=== PATIENT | male | born 1965 | race Two or more races ===

== ENCOUNTER 2016-08-10 18:39 | Inpatient (IN) | payer MEDICAID ==
[2016-08-10] MEDS ORDERED: Ondansetron INJ* 2 MG/ML VIAL IV ONE (20:20)
[2016-08-10] MEDS ORDERED: NS 0.9% 1000 ML* 1,000 ML IV ONE (20:20)
[2016-08-10] MEDS ORDERED: HYDROmorphone* 1 MG/ML 1 ML SYR IV ONE (20:20)
[2016-08-10 20:46] LABS: Urine Bacteria Absent (Absent); Urine Bilirubin Negative (Negative); Urine Glucose Negative (Negative); Urine Nitrite Negative (Negative)
[2016-08-10 22:08] LABS: Hematocrit 42 % (42-52); Hemoglobin 14.3 g/dl (14.0-18.0); Mean Corpuscular HGB Conc 34 g/dl (31-36); Mean Corpuscular Hemoglobin 29 pg (27-31); Mean Corpuscular Volume 87 fL (80-94); Mean Platelet Volume 9 um3 (7.4-10.4); Red Blood Count 4.85 10^6/ul (4.0-5.4); Red Cell Distribution Width 14 % (10.5-15); White Blood Count 15.4 10^3/ul (3.5-10.8)
--- NOTE | 2016-08-10 22:08 | RAD ---
HISTORY: Right upper quadrant pain. COMPARISONS: None TECHNIQUE: Multiple transverse and longitudinal ultrasound images were obtained of the right upper quadrant. FINDINGS: LIVER: The liver is normal in dimensions and echogenicity. Normal hepatic and portal venous blood flow is duplicated with color flow imaging. There is no gross intrahepatic biliary duct dilatation. GALLBLADDER AND EXTRAHEPATIC BILIARY DUCT: There are multiple echogenic and shadowing stones in the gallbladder lumen. The gallbladder wall measures up to 6 mm in thickness. There is trace pericholecystic fluid. The common bile duct measures a maximum diameter of 4 mm. PANCREAS: The portions of the pancreas not obscured by bowel gas are normal in appearance. RIGHT KIDNEY: The right kidney is normal in size, morphology and echogenicity. AORTA AND IVC: The visualized portions are normal in appearance and not pathologically dilated. IMPRESSION: SONOGRAPHIC FINDINGS INCLUDE CHOLELITHIASIS WITH GALLBLADDER WALL THICKENING AND TRACE PERICHOLECYSTIC FLUID. NEGATIVE CLINICAL SETTING THESE FINDINGS ARE CONSISTENT WITH ACUTE CHOLECYSTITIS. IF CLINICALLY WARRANTED FURTHER CHARACTERIZATION COULD BE MADE WITH HIDA SCAN.
[2016-08-10 22:26] LABS: Albumin 3.5 g/dL (3.2-5.2); C Reactive Protein 196.61 mg/L (< 5.00); Calcium 8.2 mg/dL (8.6-10.3); EGFR African American 109.3 (>60); Potassium 3.5 mmol/L (3.5-5.0); Total Bilirubin 1.9 mg/dL (0.2-1.0); Total Protein 6.5 g/dL (6.4-8.9)
[2016-08-11] MEDS ORDERED: Ondansetron INJ* 2 MG/ML VIAL IV PRN ×2 (00:27→17:55)
[2016-08-11] MEDS: HYDROmorphone* 1 MG/ML 1 ML SYR IV PRN ×4 (00:56→11:16)
[2016-08-11] MEDS ORDERED: Piperac/Tazob 3.375 gm in NS* 3.375 GM/100 ML BAG IVPB ONE (01:00)
--- NOTE | 2016-08-11 01:17 | ED ---
Po Curiel Michael, scribed for Julissa Francis MD on 08/10/16 at 1958 . Abdominal Pain/Male - HPI Summary HPI Summary: 51 y/o male comes to the ED presenting with sharp right sided pain that started this morning at 0200. The pt only speaks Japanese and his nephew translated for him. The pt states that he ate fried vegetables at 2200, and then the pain started suddenly at 0200. The constant abd pain is described as a 8 out of 10 on a pain assessment scale. Currently the pain is still an 8 out of 10. He notes the pain is aggravated with deep breathes and palpation. The pt also c/o vomiting and SOB. He denies diarrhea. The pt has no FHx of [place], and he has not been on any long trips. - History of Current Complaint Chief Complaint: EDAbdPain Stated Complaint: ABD PAIN Time Seen by Provider: 08/10/16 19:23 Hx Obtained From: Patient, Medical Records Onset/Duration: Sudden Onset, Lasting Hours, Still Present Timing: Constant Severity Initially: Moderate Severity Currently: Moderate Pain Intensity: 8 Pain Scale Used: 0-10 Numeric Location: Discrete At: RUQ, Discrete At: RLQ Radiates: No Character: Sharp Aggravating Factor(s): Deep Breaths, Other: - palpation Alleviating Factor(s): Nothing Associated Signs And Symptoms: Positive: Vomiting, Other - abd pain. SOB.. Negative: Diarrhea - Allergies/Home Medications Allergies/Adverse Reactions: Allergies Allergy/AdvReac Type Severity Reaction Status Date / Time No Known Allergies Allergy Verified 08/10/16 18:48 Home Medications: Home Medications Acetaminophen TAB* [Tylenol TAB*] 650 mg PO Q4HR PRN 08/10/16 [History Confirmed 08/10/16] PMH/Surg Hx/FS Hx/Imm Hx Previously Healthy: Yes - pt denies PMHx Infectious Disease History: No Infectious Disease History: Denies: Traveled Outside the [place] in Last 30 Days - Family History Known Family History: Positive: None - pt denies significant FHx Negative: Cardiac Disease - Social History Lives: Alone Alcohol Use: Rare Hx Substance Use: No Hx Tobacco Use: Yes Review of Systems Positive: Shortness Of Breath Positive: Abdominal Pain, Vomiting. Negative: Diarrhea All Other Systems Reviewed And Are Negative: Yes Physical Exam Triage Information Reviewed: Yes Vital Signs On Initial Exam: Initial Vitals Temp Pulse Resp BP Pulse Ox 99.2 F 80 18 126/62 97 08/10/16 18:49 08/10/16 18:49 08/10/16 18:49 08/10/16 18:49 08/10/16 18:49 Vital Signs Reviewed: Yes Appearance: Positive: Well-Appearing, Pain Distress Skin: Positive: Warm, Skin Color Reflects Adequate Perfusion, Dry Eyes: Positive: EOMI, DOROTHY ENT: Positive: Pharynx normal, TMs normal Neck: Positive: Supple, Nontender Respiratory/Lung Sounds: Positive: Clear to Auscultation, Breath Sounds Present. Negative: Rales, Rhonchi, Wheezes Cardiovascular: Positive: RRR, Other - no gallops. Negative: Murmur, Rub Abdomen Description: Positive: Soft, Other: - no rebound. Negative: Nontender - RUQ pain, Distended, Guarding Bowel Sounds: Positive: Present Musculoskeletal: Positive: Strength/ROM Intact. Negative: Edema Left, Edema Right Neurological: Positive: Sensory/Motor Intact, Alert, Oriented to Person Place, Time, CN Intact II-III Psychiatric: Positive: Affect/Mood Appropriate Diagnostics - Vital Signs Vital Signs Temp Pulse Resp BP Pulse Ox 08/10/16 18:49 99.2 F 80 18 126/62 97 - Laboratory Lab Results: Lab Results 08/10/16 08/10/16 08/10/16 Range/Units 19:25 22:01 22:01 WBC 15.4 H (3.5-10.8) 10^3/ul RBC 4.85 (4.0-5.4) 10^6/ul Hgb 14.3 (14.0-18.0) g/dl Hct 42 (42-52) % MCV 87 (80-94) fL MCH 29 (27-31) pg MCHC 34 (31-36) g/dl RDW 14 (10.5-15) % Plt Count 133 L (150-450) 10^3/ul MPV 9 (7.4-10.4) um3 Neut % (Auto) 82.8 (38-83) % Lymph % (Auto) 10.5 L (25-47) % [place] % (Auto) 5.6 (1-9) % Eos % (Auto) 0.1 (0-6) % Baso % (Auto) 1.0 (0-2) % Absolute Neuts (auto) 12.7 H (1.5-7.7) 10^3/ul Absolute Lymphs (auto) 1.6 (1.0-4.8) 10^3/ul Absolute Monos (auto) 0.9 H (0-0.8) 10^3/ul Absolute Eos (auto) 0 (0-0.6) 10^3/ul Absolute Basos (auto) 0.1 (0-0.2) 10^3/ul Absolute Nucleated RBC 0.01 10^3/ul Nucleated RBC % 0 Sodium 134 (133-145) mmol/L Potassium 3.5 (3.5-5.0) mmol/L Chloride 101 (101-111) mmol/L Carbon Dioxide 26 (22-32) mmol/L Anion Gap 7 (2-11) mmol/L BUN 13 (6-24) mg/dL Creatinine 0.93 (0.67-1.17) mg/dL Est GFR ( Amer) 109.3 (>60) Est GFR (Non-Af Amer) 85.0 (>60) BUN/Creatinine Ratio 14.0 (8-20) Glucose 132 H (70-100) mg/dL Lactic Acid (0.5-2.0) mmol/L Calcium 8.2 L (8.6-10.3) mg/dL Total Bilirubin 1.90 H (0.2-1.0) mg/dL AST 78 H (13-39) U/L ALT 142 H (7-52) U/L Alkaline Phosphatase 101 (34-104) U/L Troponin I 0.00 (<0.04) ng/mL C-Reactive Protein 196.61 H (< 5.00) mg/L Total Protein 6.5 (6.4-8.9) g/dL Albumin 3.5 (3.2-5.2) g/dL Globulin 3.0 (2-4) g/dL Albumin/Globulin Ratio 1.2 (1-3) Lipase 11 (11.0-82.0) U/L Urine Color Mari Urine Appearance Clear Urine pH 6.0 (5-9) Ur Specific [place] 1.026 (1.010-1.030) Urine Protein 2+(100 mg/dl) H (Negative) Urine Ketones Trace H (Negative) Urine Blood Negative (Negative) Urine Nitrate Negative (Negative) Urine Bilirubin Negative (Negative) Urine Urobilinogen Negative (Negative) Ur Leukocyte Esterase Negative (Negative) Urine WBC (Auto) Trace(0-5/hpf) (Absent) Urine RBC (Auto) Absent (Absent) Urine Bacteria Absent (Absent) Urine Glucose Negative (Negative) 08/10/16 Range/Units 22:01 WBC (3.5-10.8) 10^3/ul RBC (4.0-5.4) 10^6/ul Hgb (14.0-18.0) g/dl Hct (42-52) % MCV (80-94) fL MCH (27-31) pg MCHC (31-36) g/dl RDW (10.5-15) % Plt Count (150-450) 10^3/ul MPV (7.4-10.4) um3 Neut % (Auto) (38-83) % Lymph % (Auto) (25-47) % [place] % (Auto) (1-9) % Eos % (Auto) (0-6) % Baso % (Auto) (0-2) % Absolute Neuts (auto) (1.5-7.7) 10^3/ul Absolute Lymphs (auto) (1.0-4.8) 10^3/ul Absolute Monos (auto) (0-0.8) 10^3/ul Absolute Eos (auto) (0-0.6) 10^3/ul Absolute Basos (auto) (0-0.2) 10^3/ul Absolute Nucleated RBC 10^3/ul Nucleated RBC % Sodium (133-145) mmol/L Potassium (3.5-5.0) mmol/L Chloride (101-111) mmol/L Carbon Dioxide (22-32) mmol/L Anion Gap (2-11) mmol/L BUN (6-24) mg/dL Creatinine (0.67-1.17) mg/dL Est GFR ( Amer) (>60) Est GFR (Non-Af Amer) (>60) BUN/Creatinine Ratio (8-20) Glucose (70-100) mg/dL Lactic Acid 0.9 (0.5-2.0) mmol/L Calcium (8.6-10.3) mg/dL Total Bilirubin (0.2-1.0) mg/dL AST (13-39) U/L ALT (7-52) U/L Alkaline Phosphatase (34-104) U/L Troponin I (<0.04) ng/mL C-Reactive Protein (< 5.00) mg/L Total Protein (6.4-8.9) g/dL Albumin (3.2-5.2) g/dL Globulin (2-4) g/dL Albumin/Globulin Ratio (1-3) Lipase (11.0-82.0) U/L Urine Color Urine Appearance Urine pH (5-9) Ur Specific [place] (1.010-1.030) Urine Protein (Negative) Urine Ketones (Negative) Urine Blood (Negative) Urine Nitrate (Negative) Urine Bilirubin (Negative) Urine Urobilinogen (Negative) Ur Leukocyte Esterase (Negative) Urine WBC (Auto) (Absent) Urine RBC (Auto) (Absent) Urine Bacteria (Absent) Urine Glucose (Negative) Result Diagrams: 08/10/16 22:01 08/10/16 22:01 Lab Statement: Any lab studies that have been ordered have been reviewed, and results considered in the medical decision making process. - EKG EK EKG Rhythm: Sinus Rhythm - 74 ST Segment: Normal Ectopy: None EKG Interpretation: no st elevation - Additional Comments Diagnostic Additional Comments: Gallbladder US: Radiologist- SONOGRAPHIC FINDINGS INCLUDE CHOLELITHIASIS WITH GALLBLADDER WALL THICKENING AND TRACE PERICHOLECYSTIC FLUID. NEGATIVE CLINICAL SETTING THESE FINDINGS ARE CONSISTENT WITH ACUTE CHOLECYSTITIS. IF CLINICALLY WARRANTED FURTHER CHARACTERIZATION COULD BE MADE WITH HIDA SCAN. Re-Evaluation - Re-Evaluation 1st Re-Evaluation Time: 22:41 Change: Unchanged - mild drift Abdominal Pain Fem Course/Dx - Course Course Of Treatment: Discussed patient care with Dr. Gonzales (Surgery) at 4 and the patient will be admitted to [facility]. 51 yo montserratian speaking male with onset ruq pain 4 hours after eating fried food at 10pm on Sun, with signs of elevated wbc, mild lft elevation and gb findings on U/S. Case discussed with Dr. Gonzales pt to be admitted - Diagnoses Provider Diagnoses: Cholecystitis Discharge - Discharge Plan Condition: Stable Disposition: ADMITTED TO [facility] Discharge Disposition Comment: pt is admitted to [facility] The documentation as recorded by the Po naik Michael accurately reflects the service I personally performed and the decisions made by me, Julissa Francis MD.
[2016-08-11] MEDS: Piperac/Tazob 3.375 gm in NS* 3.375 GM/100 ML BAG IVPB SCH ×3 (05:37→21:03)
[2016-08-11 06:35] LABS: Hematocrit 42 % (42-52); Hemoglobin 14.2 g/dl (14.0-18.0); Mean Corpuscular HGB Conc 34 g/dl (31-36); Mean Corpuscular Hemoglobin 29 pg (27-31); Mean Corpuscular Volume 87 fL (80-94); Mean Platelet Volume 9 um3 (7.4-10.4); Red Blood Count 4.83 10^6/ul (4.0-5.4); Red Cell Distribution Width 14 % (10.5-15); White Blood Count 12.9 10^3/ul (3.5-10.8)
[2016-08-11 06:48] LABS: Albumin 3.4 g/dL (3.2-5.2); BUN/Creatinine Ratio 12.1 (8-20); Calcium 8.3 mg/dL (8.6-10.3); EGFR African American 84.7 (>60); EGFR Non-African American 65.9 (>60); Globulin 2.9 g/dL (2-4); Potassium 3.8 mmol/L (3.5-5.0); Total Bilirubin 2.7 mg/dL (0.2-1.0); Total Protein 6.3 g/dL (6.4-8.9)
--- NOTE | 2016-08-11 12:36 | HP ---
CC: [facility] ADMISSION HISTORY AND PHYSICAL: DATE OF ADMISSION: 08/11/16 ATTENDING SURGEON: Dr. Jake Gonzales. CHIEF COMPLAINT: Right upper quadrant abdominal pain. HISTORY OF PRESENT ILLNESS: This is a 51-year-old gentleman, who speaks very little Englis h and presented to the ED last evening. He states that he began having pain around 2 a.m. Sunday morning. He had had some fried vegetables the evening prior. He reports nausea and vomiting on , but none since. He states that he felt that he might have been running a temperature. He states that at the present time, after pain medication, his pain is 6-7/10, which is somewhat improv ed. He has never had any similar episodes. He has not had any prior abdominal surgeries. PAST MEDICAL HISTORY: Unremarkable. He specifically denies history of high blood pressure, heart d isease, pulmonary disease, or diabetes. CURRENT MEDICATIONS: None, other than Tylenol in the last day or two. DRUG ALLERGIES: None. FAMILY HISTORY: Not obtained. REVIEW OF SYSTEMS: Limited based on not having immediate translation available, but otherwise no ad ditions to the HPI and past medical history. PHYSICAL EXAMINATION GENERAL: Well-nourished, well-developed, male in no acute distress. He actually appears f airly comfortable and is able to converse. VITAL SIGNS: Current temperature 98.4 with a T-max of 100.3, blood pressure 103/59, pulse 70, respi rations 16, room air saturation 96%. HEENT: Pupils equal and round, reactive. EOMs intact. No conjunctival pallor or scleral icterus. Oropharynx: Mucous membranes are moist. He has full upper denture. Remaining teeth in good repai r. No intraoral lesions. NECK: No lymphadenopathy, thyromegaly, or masses. LUNGS: Clear to auscultation. No rales or wheezes. HEART: Regular rate and rhythm. No murmur noted. ABDOMEN: Bowel sounds are present. Abdomen is soft with tenderness primarily in the right upper qu adrant with positive Amcias's sign and question of palpable mass. The remainder of the abdomen is so ft and nontender without palpable mass or organomegaly. No palpable inguinal hernias. GENITALIA: Otherwise not examined. RECTAL: Otherwise not examined. BACK: Not examined. EXTREMITIES: No edema. NEUROLOGIC: Grossly intact. SKIN: Warm and dry. No suspicious rashes or lesions. DIAGNOSTIC STUDIES/LAB DATA: Of note, white blood cell count 12,900 down from 15,400 on admission. His basic electrolytes, BUN and creatinine are normal. Glucose is essentially normal. Bilirubin c urrently 2.7, up from 1.9 on admission; AST 78, unchanged; ALT 140, unchanged; alkaline phosphatase 116. CRP on admission 197. Ultrasound of the gallbladder had been obtained on admission showing multiple gallstones. A thicken ed gallbladder wall up to 6 mm, a normal-sized common bile duct at 4 mm, and some trace pericholecys tic fluid. IMPRESSION: Acute calculous cholecystitis. PLAN: The patient was admitted and is currently receiving IV antibiotics, pain medication as needed , and IV fluids. Because of the rise in total bilirubin, an MRCP will be performed, which is venus g. If that is clear, the patient will be considered for operative intervention, i.e., laparoscopic cholecystectomy possibly as soon as later today. Case will be discussed with Dr. Fields who is t he surgeon on-call. MALENA ROMAN [id number]/[facility] #: [id number]
--- NOTE | 2016-08-11 14:48 | RAD ---
Indication: Elevated liver enzyme with gallstones. Image sequences: Axial T2, coronal T2, 3-D MRCP images were obtained. The gallbladder is distended. There are multiple small gallstones which appear to layer in the deep tendon portion of the gallbladder. There appears to be some gallbladder wall thickening. The common bile duct and common hepatic ducts are not dilated. No filling defects are noted to suggest common duct calculi. There may be a calculus in the neck of the gallbladder. The visualized pancreas is unremarkable. The spleen and liver demonstrates a trace amount of ascites. Small pleural effusion is noted. IMPRESSION: Multiple gallstones with gallbladder wall thickening. No evidence of common duct calculi is identified.
[2016-08-11] MEDS ORDERED: Bupivacaine 0.25% EPI 200,000* 30 ML SDV ONE (15:58)
[2016-08-11] MEDS ORDERED: Midazolam* 1 MG/ML 5 ML VIAL (5 MG) ONE (16:36)
[2016-08-11] MEDS ORDERED: fentaNYL* 50 MCG/ML 2 ML VIAL (100 MCG VIAL) ONE ×3 (16:49→18:58)
[2016-08-11] MEDS ORDERED: Ondansetron INJ* 2 MG/ML VIAL ONE (16:49)
[2016-08-11] MEDS ORDERED: Dexamethasone IV* 4 MG/ML 1 ML (4 MG) ONE (16:49)
[2016-08-11] MEDS ORDERED: Propofol* 10 MG/ML 20 ML BTL IV PUSH ONE (16:49)
[2016-08-11] MEDS ORDERED: Atracurium* 10 MG/ML 10 ML VIAL ONE (16:54)
[2016-08-11] MEDS ORDERED: DiMENhydriNATE IV* 50 MG/ML VIAL IV PUSH PRN (17:55)
[2016-08-11] MEDS ORDERED: HYDROmorphone* 1 MG/ML 1 ML SYR IV PRN (17:55)
--- NOTE | 2016-08-11 18:48 | SURGPN ---
Brief Operative Note - Surgery Procedures: OPERATIVE REPORT PRE-OP: Acute calculous cholecystitis POST-OP: Same PROCEDURE: Laparoscopic cholecystectomy SURGEON: MD Donnie ANESTHESIA: General with local with Monster Disla ASST: MALENA Coronado IVF: 1 liter of crystalloid EBL: min SPECIMEN: gallbladder DRAIN: # 10 ANT in right upper quadrant WOUND CLASS: 3 COMPLICATIONS: none TO PACU
[2016-08-11] MEDS ORDERED: oxyCODONE/Acetamin 5/325 MG* TAB PO PRN (18:50)
[2016-08-11] MEDS: fentaNYL* 50 MCG/ML 2 ML VIAL (100 MCG VIAL) IV PRN ×3 (19:08→19:51)
[2016-08-11] MEDS: NS 0.9% 1000 ML* 1,000 ML IV SCH (20:20)
[2016-08-11] MEDS: Ketorolac INJ* 30 MG/ML 1 ML VIAL IV PUSH PRN (21:04)
--- NOTE | 2016-08-12 03:41 | OP ---
DATE OF OPERATION: 08/11/16 - ROOM #332 DATE OF : 61 SURGEON: Dr. Fields. INFORMATICS DEVELOPER: MALENA Concepcion ANESTHESIOLOGIST: Dr. Vaughn. ANESTHESIA: General. PRE-OP DIAGNOSIS: Acute calculus cholecystitis. POST-OP DIAGNOSIS: Acute calculus cholecystitis. OPERATIVE PROCEDURE: Laparoscopic cholecystectomy. ESTIMATED BLOOD LOSS: Minimal. IV FLUIDS: 1 Liter of crystalloid. SPECIMEN: Gallbladder. WOUND CLASSIFICATION: 3. DRAINS: No.10 ANT drain in the right upper quadrant. COMPLICATIONS: None. BRIEF HISTORY: Mr. Devan Negrete is a 51-year-old gentleman who presented to the emergency room with 48 hours of epigastric and right upper quadrant abdominal pain worsening. He was noted to have a low-grade fever in addition did have an elevated white blood cell count. There was a mild total bilirubin elevation as well. He was admitted to the Surgical Service and placed on IV antibiotics. In the morning of hospital day #1, he was noted to have an increased total bilirubin up to 2.8, and he subsequently underwent an MRCP, which showed no common bile duct stone and some thickening of the gallbladder wall consistent with cholecystitis. An ultrasound had been obtained, which showed thickened gallbladder wall with sludge and some pericholecystic fluid consistent with acute cholecystitis. In light of the workup, it has been now recommended that he undergo a cholecystectomy. He speaks very little Armenian and, through the interpretive service, I was able to discuss this with him. Our full time staff interpreter was Regan; her number is [phone]. Through the full time staff interpreter, we discussed his recent symptoms, his testing, and recommendations for cholecystectomy. The procedure was discussed with him and the risk but not limited to bleeding, infection, intraabdominal abscess formation, injury to peritoneal and retroperitoneal structures, common bile duct injury requiring further reconstruction, possibility of an open procedure, the risk of general anesthesia were all discussed. DESCRIPTION OF PROCEDURE: Written informed consent was obtained as above. The abdomen was marked with indelible ink and preoperative antibiotics were administered. He was taken to the operating room and placed in the supine position. Sequential compression devices were placed and a warming blanket was applied. General anesthesia was administered. The abdomen was prepped and draped in the usual sterile fashion. A time-out verification was completed. Initially, a transverse incision was made just above the umbilicus in the midline. The peritoneal cavity was entered under direct vision. A 12-mm blunt port was inserted and the abdomen was insufflated to 15 mmHg. A second 11 mm port was placed in the xiphoid position and two 5 mm ports were placed in the right side of the abdominal wall. On visualization of the right upper quadrant, there was omentum adherent to the liver and gallbladder and this was taken down bluntly with some minimal bleeding. We were able to identify the gallbladder, which was markedly and acutely inflamed and quite thick walled and distended and not able to be grasped initially. We decompressed the gallbladder for about 50 cc of dark thin fluid using an 18 gauge needle, and then we were able to grasp this and elevated up over the liver bed. In addition, it was obvious there was a significant inflammatory response involving the gallbladder and using both combination of blunt and sharp dissection initially along the infundibular area, I was able to take down a significant rind to expose the gallbladder infundibulum. The thickened peritoneum along the medial and lateral aspects of the gallbladder was also taken down and was able to identify the cystic arteries. It entered the gallbladder as well the junction between the cystic duct and gallbladder and developed the space to identify the anatomy. Once identified the cystic duct and this was cleared, I was able to take a significant portion of the inferior part of the gallbladder off the liver bed to assure myself of these structures and only these two structures entered the gallbladder. The cystic artery was then triply clipped and divided the gallbladder where the cystic duct was somewhat thickened and 10 mm clips were then applied across this and the cystic duct was divided. Due to the amount of inflammation, I did use a 2-0 Polysorb Endoloop just below the two mario on the cystic duct for additional ligation of the cystic duct. The gallbladder was then removed from the liver bed using combination of cautery and blunt dissection. The gallbladder was placed in an EndoCatch bag. The right upper quadrant was irrigated. Hemostasis was assured along the liver bed and edges. There were several small stones that had spilled, and using a 10 mm suction device and these were adequately cleared from the abdomen. A #10 ANT drain was then placed in the right upper quadrant in the Crews's pouch and brought up through the lateral 5-mm port site. The gallbladder was removed from the umbilical incision. It was necessary to increase the skin size as well as slightly divide the fascia to remove the large gallbladder itself. All ports were then removed under direct vision of the camera. The umbilical fascia was closed with interrupted 0 Polysorb suture. The skin was approximated with subcuticular 4-0 Polysorb suture. Steri- Strips and a drain sponge were placed. The patient tolerated the procedure well and was taken to recovery room in stable condition. [id number]/[facility] #: [id number] MARILOU
[2016-08-12] MEDS: oxyCODONE/Acetamin 5/325 MG* TAB PO PRN ×5 (03:57→21:24)
[2016-08-12] MEDS: NS 0.9% 1000 ML* 1,000 ML IV SCH ×3 (04:00→20:00)
[2016-08-12] MEDS: Piperac/Tazob 3.375 gm in NS* 3.375 GM/100 ML BAG IVPB SCH ×3 (05:15→21:27)
[2016-08-12] MEDS: HYDROmorphone* 1 MG/ML 1 ML SYR IV PRN ×3 (05:18→19:50)
[2016-08-12 06:20] LABS: Hematocrit 41 % (42-52); Hemoglobin 13.5 g/dl (14.0-18.0); Mean Corpuscular HGB Conc 33 g/dl (31-36); Mean Corpuscular Hemoglobin 29 pg (27-31); Mean Corpuscular Volume 88 fL (80-94); Mean Platelet Volume 9 um3 (7.4-10.4); Red Cell Distribution Width 14 % (10.5-15); White Blood Count 11.4 10^3/ul (3.5-10.8)
[2016-08-12 06:41] LABS: BUN/Creatinine Ratio 19.8 (8-20); Calcium 7.7 mg/dL (8.6-10.3); EGFR Non-African American 73.1 (>60); Potassium 3.8 mmol/L (3.5-5.0)
--- NOTE | 2016-08-12 09:41 | PN ---
Progress Note - Progress Note SOAP: Subjective: Doing well -pain well controlled Tolerating some po Objective: Temp Pulse Resp BP Pulse Ox 97.9 F 53 18 106/55 98 08/12/16 07:33 08/12/16 07:33 08/12/16 08:00 08/12/16 07:33 08/12/16 08:00 Intake & Output 08/10/16 08/11/16 08/12/16 08/13/16 06:59 06:59 06:59 06:59 Intake Total 0 4755 Output Total 0 520 Balance 0 4235 Weight 170 lb 170 lb Intake: IV Fluids 3575 LR 2054 NS (0.9%) 1521 IVPB 100 Oral 0 1080 Output: ANT #1 170 Urine 0 350 Other: # Bowel Movements 0 Estimated Blood Loss <100 Comment PEX: Comfortable Lungs are clear Abd is soft and slightly distended. Incisions clean and dry ANT in place with serosanguinous output Ext without edema Assessment: POD#1 s/p lap choly for acute calculous cholecystitis Plan: Advance diet Increase activity IV abx for 24 more hours Plan d/c 08/13- no further antibiotics needed on d/c and will d/c drain prior to discharge.
[2016-08-12] MEDS: Ketorolac INJ* 30 MG/ML 1 ML VIAL IV PUSH PRN ×2 (09:52→16:03)
[2016-08-13] MEDS: oxyCODONE/Acetamin 5/325 MG* TAB PO PRN (03:45)
[2016-08-13] MEDS: Ketorolac INJ* 30 MG/ML 1 ML VIAL IV PUSH PRN (03:46)
[2016-08-13] MEDS: NS 0.9% 1000 ML* 1,000 ML IV SCH (03:50)
[2016-08-13] MEDS: Piperac/Tazob 3.375 gm in NS* 3.375 GM/100 ML BAG IVPB SCH (05:01)
[2016-08-13 05:07] LABS: Albumin 3.1 g/dL (3.2-5.2); Direct Bilirubin 0.4 mg/dL (0.03-0.18); Globulin 3.2 g/dL (2-4); Indirect Bilirubin 0.6 mg/dL (0.3-1.0); Total Protein 6.3 g/dL (6.4-8.9)
[2016-08-13 08:24] VITALS: BP 113/69
--- NOTE | 2016-08-13 11:53 | DCNOTE ---
Patient has adequate pain control and is eating and drinking without N/V. Vital Signs Temp 98.2 F 08/13/16 07:17 Pulse 59 08/13/16 07:17 Resp 18 08/13/16 08:00 BP 113/69 08/13/16 07:17 Pulse Ox 98 08/13/16 07:17 NAD abd: incis c/d/i; ANT serosang--d/c'd Intake & Output 08/12/16 08/13/16 08/13/16 18:59 06:59 18:59 Intake Total 2011.7 4011 225 Output Total 430 280 320 Balance 1581.7 3731 -95 Intake: IV Fluids 1117 1771 NS (0.9%) 1117 1759 zosyn 12 Medicated IV 124.7 zosyn 124.7 Oral 770 2240 225 Output: ANT #1 30 30 20 Urine 400 250 300 Other: Estimated Void Large Laboratory Results - last 24 hr 08/13/16 04:28 Total Bilirubin 1.00 D Direct Bilirubin 0.40 H Indirect Bilirubin 0.6 AST 44 H ALT 102 H Alkaline Phosphatase 172 H Total Protein 6.3 L Albumin 3.1 L Globulin 3.2 Albumin/Globulin Ratio 1.0 Impression: s/p lap cheryl. Improving LFTs. Plan: Home today. ANT out. Rx sent to [facility] for Percocet and Motrin. RTO 5-7 days. No work until 08/21/16 (given note)
--- NOTE | 2016-09-22 14:34 | DS ---
CC: [facility]; [facility] * DATE OF ADMISSION: 08/11/2016. DATE OF DISCHARGE: 08/13/2016. PRINCIPAL DIAGNOSIS: Acute calculus cholecystitis. PROCEDURE PERFORMED: Laparoscopic cholecystectomy. CONDITION ON DISCHARGE: Good. Disposition was to home. Patient was allowed to advance his diet as tolerated. He needed no further antibiotics, but was given a prescription for Percocet and Nutren which were sent to [facility] pharmacy. Followup appointment was made in the [facility] to see me in the office for appropriate postoperative surgical care. He was instructed to call the office sooner if he develops fevers, chills, redness, abdominal pain, nausea or vomiting. Noted jaundice or other questions of concerns. HISTORY OF PRESENT ILLNESS: Mr. Jonathan Negrete is a 51-year-old gentleman who presented to the emergency room with just over 24 hours of right upper quadrant abdominal pain associated nausea and vomiting. He thought he may have been running a fever, but never had the symptoms in the past. His past medical history is otherwise, unremarkable. In the emergency room [place] [address]. He has an elevation of his bilirubin at 1.9 which subsequently went up to 2.7 on hospital day #1. Ultrasound of his gallbladder showed multiple gallstones with thickened gallbladder wall and a normal sized common bile duct. HOSPITAL COURSE: Patient was admitted to the surgical service. Due to the elevation of his bilirubin, initial study done was in MRCP that showed no evidence of common bile duct calculi. Later that day he underwent a laparoscopic cholecystectomy for acute calculus cholecystis which he tolerated well. A ANT drain was placed in right upper quadrant, but was removed prior to his discharge to home. He was maintained on intravenous antibiotics for the next 48 hours. He did well, remained afebrile. His diet was advanced as tolerated. His bilirubin returned to normal. He was tolerating a regular diet, ambulating, his pain was well controlled with oral analgesia. His incisions were healing nicely and he was discharged home with the above instructions. [id number]/[facility] #: [id number] [facility]
== END 2016-08-13 12:30 | disposition home or self-care (01) | DRG 419 ==
LOC: ED 18:39 → MED 23:41 → OBSVTOIN 08-11 18:53 → SSU 08-11 20:31
PROVIDERS: ADMIT Surgery; ATTEND Surgery
PROC: 0FT44ZZ Resection of Gallbladder, Percutaneous Endoscopic Approach (ICD-10-PCS; principal; 2016-08-11 16:15)
DX: K80.00 Calculus of gallbladder with acute cholecystitis without obstruction (principal)
CPT/HCPCS: 36415; 74181; 76376; 76705; 80048; 80053; 80076; 81003; 81015; 83605; 83690; 84484; 85025; 85027; 86140; 88304; 93005; 94760; A9270-GY; J1100; J1170; J1885; J2250; J2405; J2543; J2704; J3010